=== PATIENT | female | born 1960 | race African-American/Black ===

== ENCOUNTER 2016-09-30 20:12 | Inpatient (IN) | payer MEDICAID ==
[~2016-09-30] VITALS: Ht 157.5 cm; Wt 61.2 kg
[~2016-09-30 20:12] MED LIST: ASPI-1035 PO; CLON0.1T PO; GABA300C PO; METO100T5 PO; OMEP40CA34 PO; VALS160T2 PO
[2016-09-30] MEDS ORDERED: ONDANSETRON HCL 4MG/2ML VIAL IV STA (22:08)
[2016-09-30] MEDS ORDERED: SODIUM CHLORIDE 0.9% 500 ML IV ONE (22:08)
[2016-09-30] MEDS ORDERED: PANTOPRAZOLE SODIUM 40 MG/VIAL IV STA (22:08)
[2016-09-30 22:43] LABS: CLARITY URINE CLEAR (CLEAR); COLOR URINE YELLOW (YELLOW); GLUCOSE URINE NEGATIVE (NEGATIVE); KETONES URINE NEGATIVE (NEGATIVE); LEUKOCYTE ESTERASE URINE TRACE (NEGATIVE); NITRITE URINE NEGATIVE (NEGATIVE); OCCULT BLOOD URINE NEGATIVE (NEGATIVE); PROTEIN URINE 1+ (NEGATIVE); UROBILINOGEN URINE 0.2 E.U./dL (0.2-1.0)
[2016-09-30 22:47] LABS: BASOPHILS % 0.9 % (0.0-2.0); EOSINOPHILS % 4.2 % (0.0-5.0); HEMATOCRIT. 23.7 % (36.0-48.0); HEMOGLOBIN. 7.9 g/dL (12.0-16.0); LYMPHOCYTES % 42.8 % (20.0-50.0); MEAN CORPUSCULAR HEMOGLOBIN 29.5 pg (28.0-32.0); MEAN CORPUSCULAR HGB CONC 33.3 g/dL (31.0-37.0); MEAN CORPUSCULAR VOLUME 88.7 fL (81.0-99.0); MONOCYTES % 7.4 % (2.0-8.0); NEUTROPHILS % 44.7 % (40.0-76.0); PLATELET 230 x1000/uL (130-400); RED BLOOD CELL COUNT 2.67 mill/uL (4.2-5.4); RED CELL DISTRIBUTION WIDTH 13.4 % (11.6-14.6); WHITE BLOOD COUNT 5.7 x1000/uL (4.5-11.0)
[2016-09-30 22:51] LABS: PARTIAL THROMBOPLASTIN TIME 27.1 sec (24.0-34.0); PROTHROMBIN TIME 10.7 sec
[2016-09-30 22:52] LABS: ALBUMIN 3.8 g/dL (3.4-5.0); ANION GAP 14; CALCIUM 8.8 mg/dL (8.5-10.1); CARBON DIOXIDE 26 mEq/L (21-32); CHLORIDE 107 mEq/L (98-107); INDEX HEMOLYSI 1 (1-3); INDEX ICTERIC 1 (1-4); INDEX LIPEMIC 1 (1-3); LIPASE 445 IU/L (73-393); UREA NITROGEN BLOOD 16 mg/dL (7-21)
[2016-09-30 22:54] LABS: RBC URINE 0-2 /hpf (0-2)
[2016-09-30 22:55] LABS: SQUAMOUS EPITHELIAL CELL URINE FEW /lpf (RARE/1+)
[2016-09-30 22:55] LABS: ALANINE AMINOTRANSFERASE 12 IU/L (13-61); eGFR 41 mL/min (>60)
[2016-09-30 22:56] LABS: BACTERIA URINE 1+
[2016-09-30 22:59] LABS: CREATINE KINASE 119 IU/L (26-192); CREATINE KINASE MB FRACTION 0.8 ng/mL (0.5-3.6); TROPONIN I < 0.02 ng/mL (0.00-0.04)
[2016-10-01] VITALS (11 sets, daily range): BP systolic 110–168; BP diastolic 60–94
[2016-10-01] MEDS ORDERED: IPRATROPIUM/ALBUTEROL 0.5-3(2.5)MG/3ML NEB INH PRN (01:00)
[2016-10-01] MEDS ORDERED: MAGNESIUM/ALUMINUM HYDROXIDE/SIMETHICONE 30ML UDC PO PRN (01:00)
[2016-10-01] MEDS ORDERED: CLONIDINE 0.1MG TABLET PO PRN (01:00)
[2016-10-01] MEDS: ACETAMINOPHEN 325MG TABLET PO PRN ×2 (02:07→13:53)
[2016-10-01] MEDS: SODIUM CHLORIDE 0.9% 1,000 ML IV SCH ×2 (02:27→21:02)
[2016-10-01] MEDS ORDERED: CLOP75TA33 PO (04:22)
[2016-10-01] MEDS ORDERED: AMLO5TAB4 PO (04:22)
[2016-10-01] MEDS ORDERED: AMLO2.5T45 PO (04:22)
[2016-10-01 04:46] LABS: CLARITY URINE CLEAR (CLEAR); COLOR URINE YELLOW (YELLOW); GLUCOSE URINE NEGATIVE (NEGATIVE); KETONES URINE NEGATIVE (NEGATIVE); LEUKOCYTE ESTERASE URINE NEGATIVE (NEGATIVE); NITRITE URINE NEGATIVE (NEGATIVE); OCCULT BLOOD URINE NEGATIVE (NEGATIVE); PROTEIN URINE 1+ (NEGATIVE); UROBILINOGEN URINE 0.2 E.U./dL (0.2-1.0)
[2016-10-01 05:08] LABS: *AMPHETAMINES SCREEN URINE NEGATIVE (NEGATIVE); *BARBITURATES SCREEN URINE NEGATIVE (NEGATIVE); *BENZODIAZEPINES SCREEN URINE NEGATIVE (NEGATIVE); *COCAINE SCREEN URINE NEGATIVE (NEGATIVE); CANNABINOID URINE SCREEN NEGATIVE (NEGATIVE); ECSTASY MDMA SCREEN URINE NEGATIVE (NEGATIVE); METHADONE URINE SCREEN NEGATIVE (NEGATIVE); OPIATES URINE SCREEN NEGATIVE (NEGATIVE); PHENCYCLIDINE URINE SCREEN NEGATIVE (NEGATIVE)
[2016-10-01 05:11] LABS: BACTERIA URINE NONE SEEN; RBC URINE NONE SEEN /hpf (0-2); SQUAMOUS EPITHELIAL CELL URINE 1+ /lpf (RARE/1+); WBC URINE 0-2 /hpf (0-2)
[2016-10-01 05:48] LABS: HEMATOCRIT 22.3 % (36.0-48.0); HEMOGLOBIN 7.5 g/dL (12.0-16.0)
[2016-10-01 06:38] LABS: ANION GAP 13; CALCIUM 8.2 mg/dL (8.5-10.1); CARBON DIOXIDE 23 mEq/L (21-32); CHLORIDE 111 mEq/L (98-107); CREATINE KINASE 97 IU/L (26-192); CREATINE KINASE MB FRACTION < 0.5 ng/mL (0.5-3.6); INDEX HEMOLYSI 1 (1-3); INDEX ICTERIC 1 (1-4); INDEX LIPEMIC 1 (1-3); TROPONIN I < 0.02 ng/mL (0.00-0.04); UREA NITROGEN BLOOD 15 mg/dL (7-21); eGFR 44 mL/min (>60)
[2016-10-01] MEDS: PANTOPRAZOLE SODIUM 40 MG/VIAL IV SCH (09:15)
[2016-10-01] MEDS: METOPROLOL TARTRATE 100MG TABLET PO SCH ×2 (13:14→21:00)
[2016-10-01 15:46] LABS: AMYLASE 84 IU/L (25-115); INDEX HEMOLYSI 1 (1-3); LIPASE 410 IU/L (73-393); TRIGLYCERIDE 281 mg/dL (0-150)
[2016-10-01] MEDS: CLONIDINE 0.1MG TABLET PO SCH ×2 (16:38→21:00)
[2016-10-01 18:25] LABS: HEMATOCRIT 27.2 % (36.0-48.0); HEMOGLOBIN 9.1 g/dL (12.0-16.0)
[2016-10-01 18:47] LABS: CREATINE KINASE 97 IU/L (26-192); CREATINE KINASE MB FRACTION < 0.5 ng/mL (0.5-3.6); INDEX HEMOLYSI 1 (1-3); TROPONIN I < 0.02 ng/mL (0.00-0.04)
[2016-10-01 22:25] LABS: HEMATOCRIT 27.3 % (36.0-48.0); HEMOGLOBIN 9.1 g/dL (12.0-16.0)
[2016-10-02] VITALS: BP 144/90
[2016-10-02 04:00] VITALS: BP 159/84
[2016-10-02 06:38] LABS: BASOPHILS % 0.7 % (0.0-2.0); EOSINOPHILS % 5.3 % (0.0-5.0); HEMATOCRIT. 28.4 % (36.0-48.0); HEMOGLOBIN. 9.6 g/dL (12.0-16.0); LYMPHOCYTES % 31.4 % (20.0-50.0); MEAN CORPUSCULAR HGB CONC 33.7 g/dL (31.0-37.0); MEAN CORPUSCULAR VOLUME 85.9 fL (81.0-99.0); MEAN PLATELET VOLUME 9.4 fl (7.4-10.4); MONOCYTES % 6.3 % (2.0-8.0); NEUTROPHILS % 56.3 % (40.0-76.0); PLATELET 213 x1000/uL (130-400); RED BLOOD CELL COUNT 3.31 mill/uL (4.2-5.4); RED CELL DISTRIBUTION WIDTH 15.2 % (11.6-14.6); WHITE BLOOD COUNT 6.4 x1000/uL (4.5-11.0)
[2016-10-02 08:32] LABS: THYROID STIMULATING HORMONE 2.6 uIU/mL (0.36-3.74)
[2016-10-02] MEDS ORDERED: AMLODIPINE 5MG TABLET PO SCH (09:00)
[2016-10-02 09:56] VITALS: BP 159/70
[2016-10-02] MEDS: PANTOPRAZOLE SODIUM 40 MG/VIAL IV SCH (10:04)
[2016-10-02] MEDS: METOPROLOL TARTRATE 100MG TABLET PO SCH (10:05)
[2016-10-02] MEDS: CLONIDINE 0.1MG TABLET PO SCH (10:05)
[2016-10-02 11:55] VITALS: BP 119/72
[2016-10-02] MEDS ORDERED: ATORVASTATIN CALCIUM 20MG TABLET PO SCH (21:00)
== END 2016-10-02 13:30 | disposition home or self-care (01) | DRG 663 ==
LOC: ER 20:12 → 8WST 23:36
PROVIDERS: ADMIT Internal Medicine; ATTEND Internal Medicine
PROC: 30233N1 Transfusion of Nonautologous Red Blood Cells into Peripheral Vein, Percutaneous Approach (ICD-10-PCS; principal; 2016-10-01)
DX: D64.9 Anemia, unspecified (principal); K85.90 Acute pancreatitis without necrosis or infection, unspecified; N17.9 Acute kidney failure, unspecified; N18.3 Chronic kidney disease, stage 3 (moderate); R63.0 Anorexia; N39.0 Urinary tract infection, site not specified; I12.9 Hypertensive chronic kidney disease with stage 1 through stage 4 chronic kidney disease, or unspecified chronic kidney disease; F10.21 Alcohol dependence, in remission; R00.1 Bradycardia, unspecified; T50.995A Adverse effect of other drugs, medicaments and biological substances, initial encounter; Z68.24 Body mass index [BMI] 24.0-24.9, adult; Z86.79 Personal history of other diseases of the circulatory system; Y92.89 Other specified places as the place of occurrence of the external cause
CPT/HCPCS: 36415; 71010; 76700; 80048; 80053; 80061; 80305; 81001; 82150; 82550; 82553; 83690; 84443; 84478; 84484; 85014; 85018; 85025; 85610; 85730; 86850; 86900; 86920; 93970; 96365; 96375; 99285; C9113; J2405; J7030; J7040; J7050; P9016

== ENCOUNTER 2017-01-13 20:14 | Emergency (ER) | payer MEDICAID ==
[~2017-01-13] VITALS: Ht 157.5 cm; Wt 59.0 kg
[~2017-01-13 20:14] MED LIST changes: +AMLO5TAB4 PO; -ASPI-1035 PO; -GABA300C PO
[2017-01-13 20:46] VITALS: BP 160/90
== END 2017-01-14 02:06 | disposition left against medical advice (07) ==
LOC: ER 20:14
DX: R31.9 Hematuria, unspecified (principal); Z53.21 Procedure and treatment not carried out due to patient leaving prior to being seen by health care provider

== ENCOUNTER 2018-11-13 01:22 | Emergency (ER) | payer MEDICAID, OTHER ==
[~2018-11-13] VITALS: Ht 157.5 cm; Wt 62.0 kg
[~2018-11-13 01:22] MED LIST changes: +ATOR20TA PO; +LEVO250T2 PO; +METO100T16 PO; -METO100T5 PO; -OMEP40CA34 PO; -VALS160T2 PO
[2018-11-13] MEDS ORDERED: ONDANSETRON HCL 4MG/2ML INJ IV STA (02:55)
[2018-11-13] MEDS ORDERED: MORPHINE SULFATE 4 MG/ML CPJ (NOT FOR IM USE) IV STA (02:55)
[2018-11-13 03:15] LABS: BASOPHILS % 1.1 % (0.0-2.0); EOSINOPHILS % 4.7 % (0.0-5.0); HEMATOCRIT. 29.9 % (36.0-48.0); HEMOGLOBIN. 10.3 g/dL (12.0-16.0); LYMPHOCYTES % 30.4 % (20.0-50.0); MEAN CORPUSCULAR HEMOGLOBIN 30.1 pg (28.0-32.0); MEAN CORPUSCULAR VOLUME 87.8 fL (81.0-99.0); MEAN PLATELET VOLUME 8.6 fl (7.4-10.4); MONOCYTES % 7.3 % (2.0-8.0); NEUTROPHILS % 56.5 % (40.0-76.0); PLATELET 252 x1000/uL (130-400); RED CELL DISTRIBUTION WIDTH 13.4 % (11.6-14.6)
[2018-11-13 03:21] LABS: CHLORIDE 106 mEq/L (98-107)
[2018-11-13 05:44] VITALS: BP 141/89
== END 2018-11-13 05:46 | disposition home or self-care (01) ==
LOC: ER 01:22
DX: R51 Headache (principal); R42 Dizziness and giddiness; R53.1 Weakness
CPT/HCPCS: 36415; 70450; 80053; 85025; 96374; 96375; 99284; J2270; J2405; Z7610

== ENCOUNTER 2024-06-19 13:11 | Emergency (ER) | payer OTHER ==
[~2024-06-19] VITALS: Ht 157.5 cm; Wt 58.0 kg
[~2024-06-19 13:11] MED LIST changes: -AMLO5TAB4 PO; +AMLO5TAB5 PO
[2024-06-19 13:37] VITALS: O2SAT 100
[2024-06-19] MEDS ORDERED: ACETAMINOPHEN 325MG TABLET PO ONE (13:45)
[2024-06-19] MEDS: ACETAMINOPHEN 325MG TABLET PO NR (14:03)
[2024-06-19] MEDS: CYCLOBENZAPRINE 10MG TABLET PO ONE (17:20)
[2024-06-19 18:53] VITALS: BP 187/80; PULSE 88; RESP 16; TEMP 36.94740; O2SAT 100
== END 2024-06-19 18:55 | disposition home or self-care (01) ==
LOC: ER 13:11
DX: S16.1XXA Strain of muscle, fascia and tendon at neck level, initial encounter (principal); R51.9 Headache, unspecified; I12.0 Hypertensive chronic kidney disease with stage 5 chronic kidney disease or end stage renal disease; N18.6 End stage renal disease; Z86.73 Personal history of transient ischemic attack (TIA), and cerebral infarction without residual deficits; Z99.2 Dependence on renal dialysis; Z79.899 Other long term (current) drug therapy; V79.60XA Unspecified bus occupant injured in collision with unspecified motor vehicles in traffic accident, initial encounter; Y93.89 Activity, other specified; Y92.89 Other specified places as the place of occurrence of the external cause; Y99.8 Other external cause status
CPT/HCPCS: 99284

== ENCOUNTER → 2024-07-05 | Outpatient (CLI) | payer MEDICARE, OTHER ==
[~2024-07-05] MED LIST changes: -AMLO5TAB5 PO; +ASPI-1497 MT; +ATOR-2 MT; +CARV12.545 MT; -CLON0.1T PO; +HYDR25TA78 MT; -METO100T16 PO; +TOLV30TA PO; +VADA150T
== END | disposition home or self-care (01) ==
LOC: CARD 09:29
PROVIDERS: ATTEND Internal Medicine
DX: I08.3 Combined rheumatic disorders of mitral, aortic and tricuspid valves (principal); I31.39 Other pericardial effusion (noninflammatory)
CPT/HCPCS: 93306